=== PATIENT | male | born 1965 | race Caucasian/White ===

== ENCOUNTER 2020-07-14 13:33 | Observation (INO) ==
[2020-07-14] MEDS ORDERED: CeFAZolin Syr 2,000MG/20 ML 2,000 MG/20 ML SYRINGE IVPB ONE (13:53)
[2020-07-14] MEDS ORDERED: Ringers Solution, Lactated 1,000 ML IVC SCH (14:00)
[2020-07-14] MEDS ORDERED: Acetaminophen IV 1,000 MG/100 ML BAG IVPB ONE (14:14)
[2020-07-14] MEDS ORDERED: Ondansetron 4 MG/2 ML VIAL IVP PRN ×2 (14:14→22:32)
[2020-07-14] MEDS ORDERED: Lidocaine/EPI 1:100k 1% 30 ML VIAL ONE (15:56)
[2020-07-14] MEDS ORDERED: *HR* FentaNYL (PF) 100 MCG/2 ML VIAL ONE (16:43)
[2020-07-14] MEDS ORDERED: *HR* Midazolam HCl 2 MG/2 ML VIAL ONE (16:43)
[2020-07-14] MEDS ORDERED: *HR* Propofol 200 MG/20 ML VIAL IVP ONE ×2 (16:44→17:50)
[2020-07-14] MEDS ORDERED: Ropivacaine/PF 0.5% 30 ML VIAL ONE (16:51)
[2020-07-14] MEDS ORDERED: Ketamine *HR* 500 MG/10 ML MDV ONE (17:51)
[2020-07-14] MEDS ORDERED: Ondansetron 4 MG/2 ML VIAL ONE (18:10)
[2020-07-14] MEDS ORDERED: Dexamethasone 4 MG/ML VIAL ONE (18:10)
[2020-07-14] MEDS: *HR* HYDROmorphone PF 0.5 MG/0.5 ML SYRINGE IVP PRN ×2 (20:20→20:33)
[2020-07-14] MEDS ORDERED: Naloxone 0.4 MG/ML INJ IVP PRN (22:32)
[2020-07-15 01:11] LABS: Hematocrit 39.7 % (37.5-50.1); Mean Corpuscular HGB Conc 31.7 g/dL (31.6-35.5); Mean Corpuscular Hemoglobin 27.5 pg (28.0-33.3); Mean Corpuscular Volume 86.5 fL (83.0-100.0); Mean Platelet Volume 9.8 fL (9.4-12.4); Platelet Count 244 K/mcL (140-400); Red Blood Count 4.59 M/mcL (4.19-5.50); Red Cell Distribution Width 13.4 % (11.5-14.5); White Blood Count 9.8 K/mcL (4.3-11.1)
[2020-07-15 01:15] LABS: Hemoglobin 12.6 g/dL (12.9-16.9)
[2020-07-15 01:29] LABS: BUN/Creatinine Ratio 29 (6-26); Blood Urea Nitrogen 20 mg/dL (6-20); Carbon Dioxide 22 mEq/L (23-29); Chloride 103 mEq/L (98-107); Glucose 197 mg/dL (70-105); Osmolality,Calculated 284 (280-300); Potassium 4.2 mEq/L (3.5-5.1); Sodium 133 mEq/L (136-145); eGFR For African Americans > 60 (> 60); eGFR For Non-African Americans > 60 (> 60)
[2020-07-15] MEDS ORDERED: D5% in Water 1,000 ML IVC PRN (04:58)
[2020-07-15] MEDS ORDERED: *HR* Dextrose 50 % in Water (Vial) 50 ML VIAL IVP PRN (04:58)
[2020-07-15] MEDS ORDERED: Dextrose Gel 15 GM/37.5 ML TUBE PO PRN ×2 (04:58)
[2020-07-15] MEDS ORDERED: *HR* Heparin 5,000 UNIT/ML VIAL SQ SCH (06:00)
[2020-07-15 06:50] VITALS: BP 126/84
[2020-07-15] MEDS ORDERED: Insulin LISPRO 300 UNITS/3 ML VIAL SUBQ SCH (07:30)
== END 2020-07-15 10:54 | disposition home or self-care (01) ==
LOC: 3NENU 13:33 → SAMDAY 13:33 → 3NENU 22:22 → SUATTDRO 23:16
PROVIDERS: ADMIT Internal Medicine; ATTEND Family Medicine